=== PATIENT | female | born 1945 | race Caucasian/White ===

== ENCOUNTER → 2024-05-18 | Day surgery (SDC) | payer MEDICARE, BC ==
[2024-05-13 14:45] LABS: BASOPHILS % 0.1 % (0.0-1.0); HEMATOCRIT 34.8 % (34.2-44.1); HEMOGLOBIN 11.7 g/dL (12.0-16.0); LYMPHOCYTES # (AUTO) 2.4 (1.0-3.2); LYMPHOCYTES % 32.3 % (18.0-39.1); MEAN CORPUSCULAR HEMOGLOBIN 33.4 pg (28-32); MEAN CORPUSCULAR HGB CONC 33.6 g/dL (31-35); MEAN CORPUSCULAR VOLUME 99.4 fL (81-99); MONOCYTES # (AUTO) 0.7 (0.2-0.8); MONOCYTES % 9.4 % (4.4-11.3); NEUTROPHILS # (AUTO) 4.3 (2.1-6.9); NEUTROPHILS % 57.9 % (38.7-80.0); PLATELET COUNT 265 x10e3/uL (140-360); RED CELL DISTRIBUTION WIDTH 11.6 % (11.7-14.4); WHITE BLOOD COUNT 7.47 x10e3/uL (4.8-10.8)
[2024-05-13 15:07] LABS: ANION GAP 15.7 mmol/L (8-16); CALCIUM 9.4 mg/dL (8.4-10.2); CREATININE, SERUM 0.84 mg/dL (0.57-1.11); POTASSIUM 3.7 mmol/L (3.5-5.1)
[~2024-05-18] MED LIST: ALIGN4 MG PO; BUPIVACAINE HCL 0.5% 10ML MPF VIAL INJ ONE; DEXAMETHASONE SOD PHOS INJ 4 MG/ML SDV ONE; FAMOTIDINE 20 MG/2 ML VIAL IV ONE; FENTANYL CITRATE/PF 100MCG/2 ML INJ ONE; FLOMAX0.4 MG PO; LEVOTHYROXINE75 MCG PO; LIDOCAINE HCL 2% LOCAL INJ 5 ML SDV VIAL INJ ONE; METOPROLOL TART25 MG PO; MUPIROCIN 2% OINT 22 GM TUBE ONE; ONDANSETRON HCL INJ 2MG/ML 2ML 2 MG/ML VIAL ONE; PROPOFOL IV EMULSION 10 MG/ML 20 ML VIAL ONE; SEVOFLURANE INHAL SOLN 250 ML PEN BTL ONE; TIMOPTIC 0.5%1 EACH OS; TYLENOL PM EXS1 EACH PO; ULTRAM 50MG50 MG PO; VALSARTAN-HCTZ1 EAC1 PO
[2024-05-18] MEDS: LACTATED RINGER'S 1,000 ML ONE (07:11)
[2024-05-18 08:12] VITALS: TEMP 97.4
[2024-05-18 09:00] VITALS: BP 128/63; PULSE 76; RESP 18; O2SAT 100
== END | disposition home or self-care (01) ==
LOC: OR 06:37
PROVIDERS: ATTEND Plastic Surgery
DX: G56.02 Carpal tunnel syndrome, left upper limb (principal); M65.832 Other synovitis and tenosynovitis, left forearm; I10 Essential (primary) hypertension; I45.10 Unspecified right bundle-branch block; E03.9 Hypothyroidism, unspecified; D64.9 Anemia, unspecified; M06.9 Rheumatoid arthritis, unspecified; M19.91 Primary osteoarthritis, unspecified site; Z01.810 Encounter for preprocedural cardiovascular examination; Z01.812 Encounter for preprocedural laboratory examination; Z01.818 Encounter for other preprocedural examination; Z79.899 Other long term (current) drug therapy; Z87.440 Personal history of urinary (tract) infections; Z98.1 Arthrodesis status; Z88.1 Allergy status to other antibiotic agents; Z88.0 Allergy status to penicillin; Z88.2 Allergy status to sulfonamides; Z88.8 Allergy status to other drugs, medicaments and biological substances
CPT/HCPCS: 25115; 36415; 71046; 80048; 85025; 93005; J1100; J2001; J2405; J2704; J3010; J7121

== ENCOUNTER → 2024-07-15 | Day surgery (SDC) | payer MEDICARE, BC ==
[2024-07-08 13:35] LABS: BASOPHILS % 0.2 % (0.0-1.0); EOSINOPHILS % 0.4 % (0.0-6.0); HEMATOCRIT 34.4 % (34.2-44.1); HEMOGLOBIN 11.2 g/dL (12.0-16.0); LYMPHOCYTES % 36.3 % (18.0-39.1); MEAN CORPUSCULAR HEMOGLOBIN 32.7 pg (28-32); MEAN CORPUSCULAR HGB CONC 32.6 g/dL (31-35); MEAN CORPUSCULAR VOLUME 100.3 fL (81-99); MONOCYTES # (AUTO) 0.6 (0.2-0.8); MONOCYTES % 10.1 % (4.4-11.3); NEUTROPHILS # (AUTO) 2.9 (2.1-6.9); NEUTROPHILS % 52.6 % (38.7-80.0); PLATELET COUNT 279 x10e3/uL (140-360); RED BLOOD COUNT 3.43 x10e6/uL (3.6-5.1); RED CELL DISTRIBUTION WIDTH 11.7 % (11.7-14.4); WHITE BLOOD COUNT 5.45 x10e3/uL (4.8-10.8)
[2024-07-08 13:59] LABS: CALCIUM 9.8 mg/dL (8.4-10.2); CREATININE, SERUM 0.82 mg/dL (0.57-1.11)
[~2024-07-15] MED LIST changes: -DEXAMETHASONE SOD PHOS INJ 4 MG/ML SDV ONE; -FAMOTIDINE 20 MG/2 ML VIAL IV ONE; +LACTATED RINGER'S 1,000 ML ONE; -LIDOCAINE HCL 2% LOCAL INJ 5 ML SDV VIAL INJ ONE; -MUPIROCIN 2% OINT 22 GM TUBE ONE; -ONDANSETRON HCL INJ 2MG/ML 2ML 2 MG/ML VIAL ONE; -SEVOFLURANE INHAL SOLN 250 ML PEN BTL ONE
[2024-07-15 09:10] VITALS: TEMP 97.3
[2024-07-15 09:40] VITALS: BP 141/81; PULSE 82; RESP 16; O2SAT 98
[2024-07-16 10:57] LABS: ABG PH 7.46 (7.35-7.45)
== END | disposition home or self-care (01) ==
LOC: OR 06:26
PROVIDERS: ATTEND Plastic Surgery
DX: M65.332 Trigger finger, left middle finger (principal); I10 Essential (primary) hypertension; G89.29 Other chronic pain; E03.9 Hypothyroidism, unspecified; Z88.1 Allergy status to other antibiotic agents; Z01.812 Encounter for preprocedural laboratory examination; Z79.899 Other long term (current) drug therapy
CPT/HCPCS: 26055; 36415 ×2; 80048; 82805; 84295; 85025; J2704; J3010; J7121